=== PATIENT | female | born 1960 | race Caucasian/White ===

== ENCOUNTER 2017-01-18 17:40 | Emergency (ER) | payer BC | END 2017-01-18 19:44 | disposition home or self-care (01) | LOC: D.ER 17:40 | DX: G44.009 Cluster headache syndrome, unspecified, not intractable (principal); F17.200 Nicotine dependence, unspecified, uncomplicated ==

== ENCOUNTER 2017-01-21 13:24 | Emergency (ER) | payer MEDICAID | END 2017-01-21 16:52 | disposition left against medical advice (07) | LOC: D.ER 13:24 | DX: R51 Headache (principal) ==